=== PATIENT | female | born 1960 | race Caucasian/White ===

== ENCOUNTER 2019-04-24 10:24 | Outpatient (CLI) | payer BC, OTHER | END 2019-04-24 23:59 | disposition home or self-care (01) | LOC: CFH 10:24 → EDBD 10:24 → CFH 23:59 | PROVIDERS: ATTEND Genetic Counselor, MS | DX: Z12.31 Encounter for screening mammogram for malignant neoplasm of breast (principal) | CPT/HCPCS: 77063; 77067 ==

== ENCOUNTER → 2019-08-27 | Outpatient (CLI) | payer BC, OTHER ==
[~2019-08-27] MED LIST: None at this time
== END | disposition home or self-care (01) ==
LOC: CARD 10:48 → EDBD 11:00
PROVIDERS: ATTEND Genetic Counselor, MS
CPT/HCPCS: 93017

== ENCOUNTER → 2020-12-06 | Outpatient (CLI) | payer BC, OTHER | END | disposition home or self-care (01) | LOC: CFH 09:55 | PROVIDERS: ATTEND Genetic Counselor, MS | DX: Z12.31 Encounter for screening mammogram for malignant neoplasm of breast (principal) | CPT/HCPCS: 77063; 77067 ==